=== PATIENT | female | born 1985 | race African-American/Black ===

== ENCOUNTER 2024-02-09 16:22 | Emergency (ER) | payer OTHER ==
[~2024-02-09] VITALS: Ht 167.6 cm; Wt 102.3 kg
[2024-02-09 16:24] VITALS: TEMP 99.2
[2024-02-09] MEDS ORDERED: ALBU18HF12 IH (16:28)
[2024-02-09] MEDS: ALBUTEROL SULFATE 2.5 MG/0.5 ML NEB SOLUTION NEB ONE (17:35)
[2024-02-09] MEDS: PredniSONE 20 MG TABLET PO ONE (17:35)
[2024-02-09] MEDS: IPRATROPIUM BROMIDE 0.5 MG/2.5 ML NEB SOLUTION NEB ONE (17:35)
[2024-02-09 17:36] VITALS: PULSE 87; RESP 18; O2SAT 95
[2024-02-09 17:48] LABS: INFLUENZA A-RTPCR,COMBO NEGATIVE (NEGATIVE); INFLUENZA B-RTPCR,COMBO NEGATIVE (NEGATIVE); RESPIRATORY SYNCYTIAL VRS-PCR NEGATIVE (NEGATIVE); SARS COVID19 RTPCR, COMBO NEGATIVE (NEGATIVE)
[2024-02-09 17:54] VITALS: PULSE 89; RESP 18; O2SAT 100
[2024-02-09 18:00] VITALS: PULSE 89; RESP 18; O2SAT 100
[2024-02-09] MEDS: ALBUTEROL SULFATE HFA 90 MCG/PUFF 8 GM INHALER IH ONE (18:02)
[2024-02-09 18:15] VITALS: BP 128/74; PULSE 83; RESP 18
== END 2024-02-09 18:30 | disposition home or self-care (01) ==
LOC: EMS 16:26
DX: J45.909 Unspecified asthma, uncomplicated (principal); Z20.822 Contact with and (suspected) exposure to COVID-19
CPT/HCPCS: 99285; 0241U; 94640; J7512; J3535